=== PATIENT | female | born 1935 | race Caucasian/White ===

== ENCOUNTER → 2018-06-01 | Outpatient (CLI) | payer OTHER ==
[~2018-06-01] MED LIST: CIPR500T87 PO; METR500T PO; OMEP-110 PO; RIVA15TA PO; TRAM50TA2 PO; ZOLP5TAB6 PO; cbd oil
== END | disposition home or self-care (01) ==
LOC: CVU 12:29
PROVIDERS: ATTEND Internal Medicine Cardiovascular Disease
DX: I35.8 Other nonrheumatic aortic valve disorders (principal); I51.7 Cardiomegaly; Z87.891 Personal history of nicotine dependence; Z85.3 Personal history of malignant neoplasm of breast; Z92.21 Personal history of antineoplastic chemotherapy
CPT/HCPCS: 93306

== ENCOUNTER 2020-06-07 12:53 | Outpatient (CLI) | payer MEDICARE | END 2020-06-07 23:59 | disposition home or self-care (01) | LOC: CFH 12:53 | PROVIDERS: ATTEND Internal Medicine Cardiovascular Disease | DX: I08.0 Rheumatic disorders of both mitral and aortic valves (principal) | CPT/HCPCS: 93306 ==

== ENCOUNTER 2020-12-17 08:59 | Outpatient (CLI) | payer MEDICARE ==
[2020-12-17] MEDS ORDERED: ZOLE5INF INJ (09:59)
[2020-12-17] MEDS ORDERED: CALC1CAP8 PO (09:59)
[2020-12-17] MEDS ORDERED: ANAS1TAB49 PO (09:59)
== END 2020-12-17 23:59 | disposition home or self-care (01) ==
LOC: STAR 08:59
PROVIDERS: ATTEND Obstetrics & Gynecology Female Pelvic Medicine and Reconstructive Surgery
DX: Z01.812 Encounter for preprocedural laboratory examination (principal); Z20.822 Contact with and (suspected) exposure to COVID-19; R10.2 Pelvic and perineal pain; N39.3 Stress incontinence (female) (male); N81.4 Uterovaginal prolapse, unspecified
CPT/HCPCS: 93005; U0003

== ENCOUNTER 2020-12-23 08:03 | Day surgery (SDC) | payer MEDICARE ==
[~2020-12-23] VITALS: Ht 142.2 cm; Wt 46.2 kg
[~2020-12-23 08:03] MED LIST changes: +ANAS1TAB49 PO; +BUPIVACAINE/PF 0.25% ONE; +CALC1CAP8 PO; +FUROSEMIDE 20 MG/2 ML ONE; +NEOMY/POLYMYXIN B GU IRR. 1 ML ONE; +ZOLE5INF INJ
[2020-12-23 08:49] VITALS: BP 184/91
[2020-12-23] MEDS ORDERED: LACTATED RINGERS 1,000 ML IV SCH (09:00)
[2020-12-23] MEDS ORDERED: CHLORHEXIDINE 15 ML UDC PO ONE (09:00)
[2020-12-23] MEDS ORDERED: FENTANYL PF 250 MCG/5ML ONE (09:38)
[2020-12-23] MEDS ORDERED: DEXAMETHASONE 4 MG/ML, 1ML ONE ×2 (09:39→15:47)
[2020-12-23] MEDS ORDERED: ROCURONIUM 10MG/ML,5ML ONE (09:39)
[2020-12-23] MEDS ORDERED: PROPOFOL 10 MG/ML, 20ML ONE (09:39)
[2020-12-23] MEDS ORDERED: LIDOCAINE GEL 2%, 5ML ONE (10:00)
[2020-12-23] MEDS ORDERED: OXYcodone 5 MG/5 ML ORAL.SOL UDC PO PRN (10:30)
[2020-12-23] MEDS ORDERED: ACETAMINOPHEN 325 MG TABLET PO PRN (10:30)
[2020-12-23] MEDS ORDERED: DIPHENHYDRAMINE 50 MG/ML, 1ML IVPush PRN ×2 (10:30)
[2020-12-23] MEDS ORDERED: PROMETHAZINE 12.5 MG SUPP PR PRN (10:30)
[2020-12-23] MEDS ORDERED: EPHEDRINE 50 MG/ML, 1ML IVPush PRN (10:30)
[2020-12-23] MEDS ORDERED: HYDROmorphone 1 MG/ML, 1ML INJ IVPush PRN (10:30)
[2020-12-23] MEDS ORDERED: hydrALAzine 20 MG/ML, 1ML IV PRN (10:30)
[2020-12-23] MEDS ORDERED: PROMETHAZINE 25 MG/ML, 1ML IVPush PRN (10:30)
[2020-12-23] MEDS ORDERED: ONDANSETRON 2MG/ML, 2ML IVPush PRN (10:30)
[2020-12-23] MEDS ORDERED: ALBUTEROL SULFATE 2.5 MG/3 ML NPPB PRN (10:30)
[2020-12-23] MEDS ORDERED: LABETALOL 5MG/ML, 20ML IV PRN (10:30)
[2020-12-23] MEDS ORDERED: DIAZEPAM 5 MG/ML, 2ML IVPush PRN (10:30)
[2020-12-23] MEDS ORDERED: MIDAZOLAM 1 MG/ML, 2ML IV PRN (10:30)
[2020-12-23] MEDS ORDERED: GLYCOPYRROLATE 0.2MG/1ML, 5ML ONE (11:06)
[2020-12-23] MEDS ORDERED: NEOSTIGMINE 1 MG/ML, 10ML ONE (11:06)
[2020-12-23] MEDS ORDERED: ONDANSETRON 2MG/ML, 2ML ONE (11:06)
[2020-12-23] MEDS ORDERED: MEPERIDINE/PF 25MG/ML,1ML ONE (11:46)
[2020-12-23] MEDS: MEPERIDINE/PF 25MG/0.5ML IVPush PRN ×2 (11:48→12:03)
[2020-12-23] MEDS ORDERED: FENTANYL PF 100 MCG/2ML ONE (12:12)
[2020-12-23] MEDS: FENTANYL PF 100 MCG/2ML IV PRN ×2 (12:14→12:35)
[2020-12-23] MEDS ORDERED: HYDROcodone/APAP 7.5-325MG/15ML UDC ONE (12:20)
[2020-12-23] MEDS ORDERED: HYDROcodone/APAP 7.5-325MG/15ML UDC PO PRN (12:30)
[2020-12-23] MEDS ORDERED: LABETALOL 5MG/ML, 20ML ONE (12:33)
[2020-12-23] MEDS ORDERED: CEFAZOLIN 1,000 MG ONE (15:47)
== END 2020-12-23 16:30 | disposition home or self-care (01) ==
LOC: OUT 08:03
PROVIDERS: ATTEND Obstetrics & Gynecology Female Pelvic Medicine and Reconstructive Surgery
DX: N81.3 Complete uterovaginal prolapse (principal); D25.1 Intramural leiomyoma of uterus; D25.0 Submucous leiomyoma of uterus; D25.2 Subserosal leiomyoma of uterus; N39.46 Mixed incontinence; N84.0 Polyp of corpus uteri; N88.8 Other specified noninflammatory disorders of cervix uteri; N83.8 Other noninflammatory disorders of ovary, fallopian tube and broad ligament; N83.312 Acquired atrophy of left ovary; N83.311 Acquired atrophy of right ovary; M81.0 Age-related osteoporosis without current pathological fracture; Z79.891 Long term (current) use of opiate analgesic; Z79.899 Other long term (current) drug therapy; Z85.3 Personal history of malignant neoplasm of breast; Z86.718 Personal history of other venous thrombosis and embolism; Z98.890 Other specified postprocedural states
CPT/HCPCS: 57265; 57282; 57288; 58552; 88307; C1771; J0690; J1100; J2175; J2405; J2704; J2710; J3010; J7120; 93005; J1940; U0003

== ENCOUNTER 2020-12-24 13:30 | Emergency (ER) | payer MEDICARE ==
[~2020-12-24] VITALS: Ht 142.2 cm; Wt 46.4 kg
[~2020-12-24 13:30] MED LIST changes: -BUPIVACAINE/PF 0.25% ONE; -FUROSEMIDE 20 MG/2 ML ONE; -NEOMY/POLYMYXIN B GU IRR. 1 ML ONE
--- NOTE | 2020-12-24 14:30 | NUR ---
PT AMBULATED STEADILY TO ROOM USING OWN WALKER, NAD NOTED. SO ACCOMPANIES. PT CO L PERIAURICULAR SWELLING X TODAY. STATES "I WAS JUST WORRIED ABOUT IT BECAUSE I HAD A SIMILAR INCIDENCE ON MY RIGHT NECK AND IT WAS A BLOOD CLOT". PT ALSO CO URINARY RETENTION FOLLOWING SRIVASTAVA REMOVAL THIS MORNING S/P HYSTERECTOMY AND BLADDER SLING YESTERDAY. "I WAS TOLD THAT IF I HADN'T PEED BY 4PM I SHOULD BE SEEN IN THE ED". DENIES ABD PAIN, FEVER, DIFFICULTY SWALLOWING OR SPEAKING. HX BREAST CANCER AND UTERINE PROLAPSE. BP/SPO2 MONITORING IN PLACE.
--- NOTE | 2020-12-24 14:57 | NUR ---
BLADDER SCAN ~ 400mL
--- NOTE | 2020-12-24 14:59 | NUR ---
bladder scanned for 414-375ml. pt up to use bathroom, ambulated with walked and provided fresh underwaer and a pad. pt able to void, states she feels a lot better. pt reports "i peed a lot". pt returned safely to bed denies pain or discomfort, provider at bedside to assess. pt in bed with no signs or symptoms of acute distress noted respirations even and unlabored.
--- NOTE | 2020-12-24 15:07 | NUR ---
REPOR TO KYRA STEPHENS
[2020-12-24 15:52] VITALS: BP 167/84
== END 2020-12-24 16:12 | disposition home or self-care (01) ==
LOC: ED 15:29
DX: K11.5 Sialolithiasis (principal); R33.9 Retention of urine, unspecified; M79.89 Other specified soft tissue disorders; Z85.3 Personal history of malignant neoplasm of breast; Z86.73 Personal history of transient ischemic attack (TIA), and cerebral infarction without residual deficits
CPT/HCPCS: 99281